=== PATIENT | male | born 1965 | race Hispanic/Latino ===

== ENCOUNTER 2021-01-18 11:32 | Emergency (ER) | payer OTHER, SELFPAY ==
[2021-01-18] MEDS ORDERED: Ibuprofen 200 MG TAB ONE (12:34)
[2021-01-18] MEDS ORDERED: Boostrix 0.5 ML (Tdap) VIAL ONE (12:34)
[2021-01-18] MEDS ORDERED: Lidocaine 1% (PF) 30 ML VIAL ONE (12:35)
[2021-01-18] MEDS ORDERED: Bacitracin 1 PK ONE (13:49)
== END 2021-01-18 14:00 | disposition home or self-care (01) ==
LOC: NAV ERS 11:32
DX: S61.012A Laceration without foreign body of left thumb without damage to nail, initial encounter (principal); S30.811A Abrasion of abdominal wall, initial encounter; W22.8XXA Striking against or struck by other objects, initial encounter; Z23 Encounter for immunization
CPT/HCPCS: 12001; 90471; 90715; J2001

== ENCOUNTER 2021-01-23 08:43 | Emergency (ER) | payer SELFPAY | END 2021-01-23 09:43 | disposition home or self-care (01) | LOC: NAV ERS 08:43 | DX: S30.1XXA Contusion of abdominal wall, initial encounter (principal); S61.012D Laceration without foreign body of left thumb without damage to nail, subsequent encounter; M25.512 Pain in left shoulder; W22.8XXA Striking against or struck by other objects, initial encounter | CPT/HCPCS: 99283 ==